=== PATIENT | female | born 1990 | race Caucasian/White ===

== ENCOUNTER 2016-06-15 05:49 | Day surgery (SDC) | payer OTHER ==
[~2016-06-15 05:49] MED LIST: IV START KIT ONE; LACTATED RINGERS 1,000 ML ONE
[2016-06-15] MEDS ORDERED: LEVOFLOXACIN 500 MG/D5W 100 ML 100 ML IV ONE (05:59)
[2016-06-15] MEDS ORDERED: LEVOFLOXACIN 500 MG/D5W 100 ML 100 ML IV PRN (06:00)
[2016-06-15] MEDS ORDERED: FENTANYL 5 ML ONE (06:13)
[2016-06-15] MEDS ORDERED: MIDAZOLAM HCL 1 MG/ML 2ML VIAL ONE (06:13)
[2016-06-15] MEDS ORDERED: IOPAMIDOL 300 (61%) 30 ML SDV ONE (06:21)
[2016-06-15] MEDS ORDERED: BUPIVACAINE 0.5% W/EPI SDV 30 ML VIAL ONE (06:21)
[2016-06-15] MEDS ORDERED: SODIUM CHLORIDE 0.9% 50 ML ONE (06:21)
[2016-06-15] MEDS ORDERED: SCOPOLAMINE 1.5 MG/72 HR 1 EACH PATCH TD ONE (06:57)
[2016-06-15] MEDS ORDERED: ONDANSETRON 4 MG/2ML 2 ML VIAL ONE (07:31)
[2016-06-15] MEDS ORDERED: GLYCOPYRROLATE 0.2 MG/ML 1ML VIAL ONE ×2 (07:31→08:35)
[2016-06-15] MEDS ORDERED: LIDOCAINE 2% (MULTI DOSE) 10 ML VIAL ONE (07:31)
[2016-06-15] MEDS ORDERED: DIPHENHYDRAMINE HCL 50 MG/1 ML VIAL ONE (07:31)
[2016-06-15] MEDS ORDERED: PROPOFOL 20 ML IV ONE (07:31)
[2016-06-15] MEDS ORDERED: ROCURONIUM BROMIDE 10 MG/ML DOSE IV ONE (07:31)
[2016-06-15] MEDS ORDERED: DEXAMETHASONE SOD PHOS 4 MG/1 ML VIAL ONE (07:31)
[2016-06-15] MEDS ORDERED: NEOSTIGMINE METHYLSULFATE 1 MG/ML DOSE ONE (07:31)
[2016-06-15] MEDS ORDERED: HYDROMORPHONE HCL 2 MG/ML SYRINGE ONE (07:43)
[2016-06-15] MEDS ORDERED: ONDANSETRON 4 MG/2ML 2 ML VIAL IV PRN ×2 (07:46→09:26)
[2016-06-15] MEDS ORDERED: NALOXONE HCL 0.4 MG/ML VIAL IV PRN (07:46)
[2016-06-15] MEDS ORDERED: ATROPINE SULFATE 0.4 MG/1 ML VIAL IV PRN (07:46)
[2016-06-15] MEDS ORDERED: HYDROMORPHONE HCL 1 MG/ML SYRINGE IV PRN (07:46)
[2016-06-15] MEDS ORDERED: PROMETHAZINE HCL 25 MG/ML VIAL IM PRN (07:46)
[2016-06-15] MEDS ORDERED: LACTATED RINGERS 1,000 ML IV SCH (08:00)
[2016-06-15] MEDS ORDERED: KETOROLAC TROMETHAMINE 30 MG/ML 1 ML VIAL ONE (08:24)
--- NOTE | 2016-06-15 08:46 | RAD ---
OPERATIVE CHOLANGIOGRAM HISTORY: Laparoscopic cholecystectomy. TECHNIQUE: 24.2 seconds of fluoroscopy time was provided for Dr. Ryan for purposes of procedural guidance. 6 fluoroscopic spot images were submitted for review. FINDINGS: Postprocedural change: Surgical clips seen at the region of the cystic duct. Mild to moderate extravasation of contrast. Extrahepatic biliary tree: No persistent filling defect or gross stricturing. Normal passage of contrast into the duodenum. IMPRESSION: Fluoroscopy provided for procedural guidance, clinically for laparoscopic cholecystectomy.
[2016-06-15] MEDS ORDERED: PROMETHAZINE HCL 25 MG/ML VIAL ONE (08:56)
[2016-06-15] MEDS ORDERED: FENTANYL 100 MCG/2 ML VIAL ONE (08:56)
[2016-06-15] MEDS: FENTANYL 100 MCG/2 ML VIAL IV PRN ×2 (09:00→09:20)
[2016-06-15] MEDS ORDERED: KETOROLAC TROMETHAMINE 30 MG/ML 1 ML VIAL IV PRN (09:26)
[2016-06-15] MEDS ORDERED: HYDROCODONE/ACETAMINOPHEN 5/325MG TABLET PO PRN (09:26)
[2016-06-15] MEDS: MORPHINE SULFATE 2 MG/ML SYRINGE IV PRN ×2 (09:42→10:04)
[2016-06-15] MEDS ORDERED: HYDROCODONE/ACETAMINOPHEN 5/325MG TABLET ONE (10:56)
--- NOTE | 2016-06-15 13:36 | OP ---
Aimee Beck [id number] DATE: 06/15/2016 PREOPERATIVE DIAGNOSIS: Chronic cholecystitis with cholelithiasis. POSTOPERATIVE DIAGNOSIS: Chronic cholecystitis with cholelithiasis. PROCEDURE: Laparoscopic cholecystectomy with intraoperative cholangiogram. SURGEON: Ben Ryan M.D. MACHINE MAINTENANCE: Dr. Aide Garcia. ANESTHESIA: Apolinar Baker, general endotracheal. INDICATIONS: This is a 25-year-old female who presents for elective cholecystectomy for symptoms of chronic biliary colic. She has ultrasound evidence of cholelithiasis. DESCRIPTION: With informed consent she was taken to the operating room where she was laid supine on the operating room table. General endotracheal anesthetic was administered. The abdomen was prepped and draped in the usual fashion. Local anesthetic was administered below the umbilicus. Incision was made. We dissected down and found an umbilical hernia. This was from the fascia. Sutures of Surgilon were placed on fascial edges and a Suero port was placed. A pneumoperitoneum was created. Local anesthetic was administered in the mid epigastrium and along the right lateral abdominal wall. Incisions were made. Five millimeters ports were placed. The fundus of the gallbladder was grasped and retracted cephalad. The infundibulum was tracked laterally. The cystic duct was identified and dissected free. A clip was placed. The duct was partially transected. A cholangiogram catheter was placed through the abdominal wall. It was placed within the cystic duct, clipped in place, and the cholangiogram was obtained showing flow of contrast into the duodenum without filling defect. We could see some of the intrahepatic ducts, but the contrast preferentially went down through the duct. The catheter was removed, two clips were placed in the cystic duct stump and was completed transected. Next, the cystic artery was identified and dissected free. Three clips were placed and it was transected leaving two clips on the stump. There was a small posterior branch that also had a clip placed. The gallbladder was then taken off the liver bed using electrocautery. Once it was placed within an Endocatch bag and removed through the infraumbilical port site. The right upper quadrant was irrigated. Hemostasis was assured. The ports were removed and the pneumoperitoneum was evacuated. The umbilical hernia fascial defect was closed with figure of eight sutures of 0 Surgilon. I excised the hernia sac and some preperitoneal fat from the underside of the umbilicus. The umbilicus was sutured down to the fascia with some 3-0 Vicryl and then the skin was closed with a running subcuticular 4-0 Monocryl, 4-0 Monocryl was used for the other incisions. Mastisol and Steri-Strips were placed. Sterile dressings were applied. She tolerated the procedure and was taken to the recovery room in stable condition. Note was made that needle, instrument, and lap counts were reported as correct at the time of closure. JOB: [id number] CC: Dr. Aide Garcia
--- NOTE | 2016-06-17 11:54 | SURGPATH ---
[facility] [address] [place] [id number] Patient Name: ZAIDA MCKINLEY MR#: [id number] : 1990 Gender: F Specimen #: [id number] Collected: 06/15/2016 Received: 06/16/2016 Reported: 06/17/2016 Submitting Phys: CHACORTA WEEMS Copy To Phys: [facility] JEREMY BEST Clinical History / Pre-Operative Diagnosis: CHOLECYSTITIS; GALLSTONES Specimen Source / Surgical Procedure Performed: GALLBLADDER Interpretation: GALLBLADDER, CHOLECYSTECTOMY: - CHOLELITHIASIS - CHOLESTEROLOSIS Electronically Signed Out Yves Wing M.D. Gross Description: The specimen is received in a formalin filled container labeled with the patient's name and "gallbladder". An intact engorged gallbladder is 7.5 x 2.5 cm. The serosa is smooth and heller. The wall averages 0.3 cm. The mucosa is green moreno and velvety with scattered slightly raised yellow flecks. There is no nodule or induration. The lumen contains a copious amount of thick dark green bile and multiple nodular, yellow-flores calculi up to 1.7 cm. Three surgical device sales representative sections are submitted in one cassette including a cross section through the cystic duct surgical margin, a central cross section and a longitudinal section through the fundus. Pato Alonzo PJoanne. Microscopic Description: The sections show gallbladder wall with collections of lipid-laden macrophages within the submucosa. 1: [id number] K80.80
== END 2016-06-15 11:50 | disposition home or self-care (01) ==
LOC: SDC 05:49
PROVIDERS: ATTEND Surgery
PROC: 0FT44ZZ Resection of Gallbladder, Percutaneous Endoscopic Approach (ICD-10-PCS; principal; 2016-06-15)
PROC: BF141ZZ Fluoroscopy of Gallbladder, Bile Ducts and Pancreatic Ducts using Low Osmolar Contrast (ICD-10-PCS; 2016-06-15)
DX: K80.10 Calculus of gallbladder with chronic cholecystitis without obstruction (principal); F41.9 Anxiety disorder, unspecified; Z86.010 Personal history of colon polyps; E66.01 Morbid (severe) obesity due to excess calories; Z68.41 Body mass index [BMI] 40.0-44.9, adult
CPT/HCPCS: 74300; 47563; J1200; J1170; J3010 ×2; J1100; J1956; J2270; J2550; A9270 ×2; J1885; J2250; J2405 ×2; J7120; Q9967; J2001